=== PATIENT | female | born 1940 | race Caucasian/White ===

== ENCOUNTER → 2016-12-08 | Outpatient (CLI) | payer MEDICARE ==
[2015-08-09 10:23] VITALS: BP 177/79
[~2016-12-08] MED LIST: CHOL10003 PO; GLUC1CAP48 PO; HYDR12.53 PO; LISI40TA PO; MULT-208 PO; NAPR220C4 PO; OMEG1CAP6 PO
--- NOTE | 2016-12-09 16:07 | RAD ---
DATE: 12/08/2016 EXAM: DIGITAL SCREEN BILAT W/CAD HISTORY: Screening study. COMPARISON: 10/15/2015 This study was interpreted with the benefit of Computerized Aided Detection (CAD). FINDINGS: Digital MLO and CC mammograms of both breasts were obtained. Comparison study is dated 10/15/2015. The breast parenchyma is heterogeneously dense which can obscure a lesion on mammography (breast density code C). No spiculated mass is seen. No malignant appearing calcification or area of architectural distortion is noted. Benign-appearing calcifications are seen scattered throughout both breasts. Since the previous examination there has been no significant interval change. IMPRESSION: BI-RADS Category 1, negative. There is no mammographic evidence of malignancy. Routine yearly screening mammography is recommended for follow-up. BI-RADS CATEGORY: 1 NEGATIVE RECOMMENDED FOLLOW-UP: 12M 12 MONTH FOLLOW-UP PQRS compliance statement: Patient information was entered into a reminder system with a target due date 12/08/2017 for the next mammogram. Mammography is a sensitive method for finding small breast cancers, but it does not detect them all and is not a substitute for careful clinical examination. A negative mammogram does not negate a clinically suspicious finding and should not result in delay in biopsying a clinically suspicious abnormality. "Our facility is accredited by the [employer] Mammography [employer]."
== END | disposition home or self-care (01) ==
LOC: MAMMO 13:52
PROVIDERS: ATTEND Specialist
DX: Z12.31 Encounter for screening mammogram for malignant neoplasm of breast (principal)
CPT/HCPCS: G0202; 77067

== ENCOUNTER → 2016-12-12 | Outpatient (CLI) | payer MEDICARE ==
[2015-08-09 10:23] VITALS: BP 177/79
[~2016-12-12] MED LIST changes: +IOHEXOL 300 MG/ML 75 ML VIAL IV ONE
--- NOTE | 2016-12-12 15:20 | RAD ---
CT of the chest with contrast, 12/12/2016: History: Follow-up hilar mass Multidetector CT imaging was performed following an IV bolus injection of iodinated contrast material. No previous CT scans are available at this time for comparison purposes. There is mild calcific plaquing of the thoracic aorta without evidence of aneurysm. Moderate coronary artery calcifications are present. The central pulmonary arteries are mildly enlarged.. The right main pulmonary artery measures 3.3 cm in width. No mediastinal or hilar adenopathy is seen. There is a calcified node at the left hilum. There are mild scattered lucencies in the lungs suggesting emphysema. There is a 15 cm irregular pulmonary nodule in the posteromedial aspect of the right lower lobe as seen on image 471 of series #3. It contains heterogeneous calcifications. There is a 6 mm irregular nodule in the left upper lobe as seen on image 209 of series #3. It contains a probable small calcification, however, that cannot be stated with certainty on these postcontrast scans. There is a 6 mm subsolid opacity in the left upper lobe as seen on image 135 of series #3. There are other scattered linear opacities in both lungs probably representing scars. There is no evidence of pleural fluid. Moderate scattered degenerative changes are present in the spine. IMPRESSION: 1. Enlargement central pulmonary arteries, particularly on the right, without evidence of a hilar mass. This may reflect pulmonary hypertension. 2. Moderate coronary artery disease. 3. Emphysema with parenchymal scarring. 4. Calcified nodule in the right lower lobe which is probably a hematoma or granuloma. 5. Noncalcified subsolid nodule in the left upper lobe as well as an additional smaller nodule containing questionable calcification. CT follow-up is suggested to exclude a neoplastic etiology. Noncontrast scans are suggested. PQRS Compliance Statement: One or more of the following individualized dose reduction techniques were utilized for this examination: 1. Automated exposure control 2. Adjustment of the mA and/or kV according to patient size 3. Use of iterative reconstruction technique
== END | disposition home or self-care (01) ==
LOC: CT 11:28
PROVIDERS: ATTEND Specialist
DX: I25.10 Atherosclerotic heart disease of native coronary artery without angina pectoris (principal); J43.9 Emphysema, unspecified
CPT/HCPCS: 71260; Q9967

== ENCOUNTER → 2017-12-17 | Outpatient (CLI) | payer MEDICARE | END | disposition home or self-care (01) | LOC: MAMMO 12:38 | DX: Z12.31 Encounter for screening mammogram for malignant neoplasm of breast (principal); I10 Essential (primary) hypertension; J43.9 Emphysema, unspecified | CPT/HCPCS: 77063; 77067 ==

== ENCOUNTER → 2018-09-10 | Outpatient (CLI) | payer MEDICARE ==
[2015-08-09 10:23] VITALS: BP 177/79
[~2018-09-10] MED LIST changes: -HYDR12.53 PO; +HYDR12.575 PO; -IOHEXOL 300 MG/ML 75 ML VIAL IV ONE; +LISI-130 PO; -LISI40TA PO
--- NOTE | 2018-09-10 10:26 | RAD ---
DATE: 09/10/2018 EXAM: MAMMO SHANNON YOMI BILAT HISTORY: Left breast nodule on CT scan COMPARISON: 12/17/2017 This study was interpreted with the benefit of Computerized Aided Detection (CAD). Breast Density: SCATTERED The breast parenchyma shows scattered fibroglandular densities. Breast parenchyma level B. FINDINGS: 2-D and 3-D tomosynthesis imaging was performed in CC and MLO projections. The fibroglandular pattern is asymmetric with increased density laterally in the left breast compared the right. This has been present on multiple previous studies dating back to at least 07/21/2011 and is unchanged. This probably represents a normal variant in the fibroglandular pattern. A left fibroadenolipoma could also give this appearance. The stability indicates a benign process. No new or enlarging breast densities are seen. Benign type calcifications are present. No suspicious microcalcifications have developed. IMPRESSION: Stable mammograms without evidence of malignancy. BI-RADS CATEGORY: 2 BENIGN FINDING(S) RECOMMENDED FOLLOW-UP: 12M 12 MONTH FOLLOW-UP PQRS compliance statement: Patient information was entered into a reminder system with a target due date for the next mammogram. Mammography is a sensitive method for finding small breast cancers, but it does not detect them all and is not a substitute for careful clinical examination. A negative mammogram does not negate a clinically suspicious finding and should not result in delay in biopsying a clinically suspicious abnormality. "Our facility is accredited by the [employer] Mammography [employer]."
== END | disposition home or self-care (01) ==
LOC: MAMMO 11:32
PROVIDERS: ATTEND Specialist
DX: N63.20 Unspecified lump in the left breast, unspecified quadrant (principal)
CPT/HCPCS: 77066; G0279; 77062